=== PATIENT | male | born 1990 | race Caucasian/White ===

== ENCOUNTER 2021-08-08 16:24 | Emergency (ER) | payer BC ==
[~2021-08-08] VITALS: Ht 177.8 cm; Wt 63.5 kg
[2021-08-08 16:39] VITALS: BP_SYST 112
--- NOTE | 2021-08-08 16:50 | NUR ---
Patient to ER bed h1 to gown for evaluation. Side rails up.
--- NOTE | 2021-08-08 17:00 | NUR ---
ER at bedside examining patient.
[2021-08-08 17:30] VITALS: BP_SYST 112
--- NOTE | 2021-08-08 17:30 | NUR ---
Patient given written and verbal discharge instructions and verbalizes understanding. ER MD discussed with patient the results and treatment provided. Patient in stable condition. ID arm band removed. no Rx of given. Patient educated on pain management and to follow up with PMD. Pain Scale 0. Opportunity for questions provided and answered. Medication side effect fact sheet provided. Pt discharged to police custody.
== END 2021-08-08 17:30 ==
LOC: SED 16:24
DX: Z02.89 Encounter for other administrative examinations (principal); Z79.899 Other long term (current) drug therapy
CPT/HCPCS: 99283

== ENCOUNTER 2022-02-24 16:09 | Emergency (ER) | payer BC ==
[~2022-02-24] VITALS: Ht 180.3 cm; Wt 68.0 kg
--- NOTE | 2022-02-24 16:10 | NUR ---
Patient to ER bed CH1 to gown for evaluation. Side rails up.
[2022-02-24 16:11] VITALS: BP_SYST 128
[2022-02-24] MEDS ORDERED: CEPH-548 PO (16:13)
--- NOTE | 2022-02-24 16:15 | NUR ---
ER DR. LOBO EXAMINING PT IN TRIAGE
--- NOTE | 2022-02-24 16:21 | NUR ---
Patient given written and verbal discharge instructions and verbalizes understanding. ER MD discussed with patient the results and treatment provided. Patient in stable condition. ID arm band removed. Rx of CEPHALEXIN given. Patient educated on pain management and to follow up with PMD. Pain Scale 0/10. Opportunity for questions provided and answered. Medication side effect fact sheet provided.
== END 2022-02-24 16:21 ==
LOC: SED 16:09
DX: Z02.89 Encounter for other administrative examinations (principal); L08.9 Local infection of the skin and subcutaneous tissue, unspecified
CPT/HCPCS: 99283